=== PATIENT | female | born 1995 | race American Indian/Alaskan Native ===

== ENCOUNTER 2017-02-16 22:10 | Emergency (ER) | payer OTHER ==
[2017-02-16 23:25] LABS: Basophils % (Auto) 0.3 % (0.0-1.8); Eosinophils % (Auto) 0.5 % (0.0-4.3); Hematocrit 38.2 % (30.3-42.9); Hemoglobin 12.3 gm/dl (10.1-14.3); Mean Corpuscular HGB Conc 32 % (30-34); Mean Corpuscular Volume 78 fl (79-97); Platelet Count 201 K/mm3 (140-440); Red Blood Count 4.88 M/mm3 (3.65-5.03); Red Cell Distribution Width 17.6 % (13.2-15.2); White Blood Count 4.2 K/mm3 (4.5-11.0)
[2017-02-16 23:30] LABS: Mean Corpuscular Hemoglobin 25 pg (28-32)
[2017-02-16 23:48] LABS: Anion Gap 16 mmol/L; Blood Urea Nitrogen 9 mg/dL (7-17); Carbon Dioxide 25 mmol/L (22-30); Glucose 107 mg/dL (65-100); Potassium 3.9 mmol/L (3.6-5.0); Sodium 137 mmol/L (137-145)
[2017-02-17] MEDS ORDERED: XANAX PO ONE (00:10)
--- NOTE | 2017-02-17 00:18 | Emergency Department Report ---
HPI - General Chief Complaint: Anxiety Time Seen by Provider: 02/17/17 00:03 - HPI HPI: This is a 21-year-old -[place] female presents to the emergency department from home with complaint of some generalized dizziness that started earlier today major feels that she is going to pass out. The patient wonders if she has anxiety and was having a panic attack. She has never been seen by a psychiatrist or diagnosed with anxiety or panic disorder but has had the same set of symptoms in the past. She otherwise denies having any past medical history. She did not take anything for symptoms prior to presentation. She denies any chest pain, shortness of breath, vision change, headache or any neurological deficits. No recent travel or sick contacts at home. She is an occasional tobacco smoker but denies any illicit drug use or abuse. ED Past Medical Hx - Past Medical History Previous Medical History?: No - Surgical History Past Surgical History?: No - Social History Smoking Status: Never Smoker Substance Use Type: None - Medications Home Medications: Home Medications Medication Instructions Recorded Confirmed Last Taken Type metroNIDAZOLE [Flagyl] 500 mg PO Q12HR #14 tab 08/26/16 Unknown Rx ED Review of Systems ROS: Stated complaint: ALFREDA, FAINTING Other details as noted in HPI Comment: All other systems reviewed and negative Constitutional: denies: chills, fever Eyes: denies: eye pain, eye discharge, vision change ENT: denies: ear pain, throat pain Respiratory: denies: cough, shortness of breath, wheezing Cardiovascular: denies: chest pain, palpitations Gastrointestinal: denies: abdominal pain, nausea, diarrhea Genitourinary: denies: urgency, dysuria, discharge Musculoskeletal: denies: back pain, joint swelling, arthralgia Skin: denies: rash, lesions Neurological: other (dizzy). denies: headache, weakness, numbness, paresthesias Psychiatric: anxiety. denies: auditory hallucinations, visual hallucinations Physical Exam - Physical Exam Vital Signs: Vital Signs 02/16/17 22:42 Temperature 98.6 F Pulse Rate 73 Respiratory 18 Rate Blood Pressure 120/68 Blood Pressure 120/68 [Right] O2 Sat by Pulse 100 Oximetry Physical Exam: GENERAL: The patient is well-developed well-nourished. HEENT: Normocephalic. Atraumatic. Extraocular motions are intact. Patient has moist mucous membranes. Pupils equal reactive to light bilaterally. NECK: Supple. Trachea is midline. CHEST/LUNGS: Clear to auscultation. There is no respiratory distress noted. HEART/CARDIOVASCULAR: Regular. There is no tachycardia. There is no gallop rub or murmur. ABDOMEN: Abdomen is soft, nontender. Patient has normal bowel sounds. There is no abdominal distention. SKIN: Skin is warm and dry. NEURO: The patient is awake, alert, and oriented. The patient is cooperative. The patient has no focal neurologic deficits. The patient has normal speech. Cranial nerves II through XII grossly intact. MUSCULOSKELETAL: There is no tenderness or deformity. There is no limitation range of motion. There is no evidence of acute injury. PSYCH: Patient has a flat affect ED Course Vital Signs 02/16/17 22:42 Temperature 98.6 F Pulse Rate 73 Respiratory 18 Rate Blood Pressure 120/68 Blood Pressure 120/68 [Right] O2 Sat by Pulse 100 Oximetry ED Medical Decision Making - Lab Data Result diagrams: 02/16/17 23:08 02/16/17 23:08 - EKG Data -: EKG Interpreted by Fl EKG shows normal: sinus rhythm (with PACs), axis, intervals, QRS complexes, ST- T waves Rate: normal - EKG Data When compared to previous EKG there are: previous EKG unavailable Interpretation: normal EKG - Medical Decision Making 21-year-old female presents with complaint of possible anxiety and/or panic attack. It causes her to feel dizzy as if she is going to pass out. Labs are unremarkable including no leukocytosis, electrolyte abnormalities, renal insufficiency, glucose abnormalities. Normal thyroid function. No urinary tract infection and the patient is not . Vital signs stable throughout her ED course. EKG is normal without ST elevation [place], ischemia or dysrhythmia. She was given a dose of Xanax to see if that will help her with her symptoms. Prior to being able to check on the efficacy of that medication, the patient eloped from the emergency department. - Differential Diagnosis anxiety, depression, panic attack, hyperthyroidism, dysrhythmia Critical Care Time: No Critical care attestation.: If time is entered above; I have spent that time in minutes in the direct care of this critically ill patient, excluding procedure time. ED Disposition Clinical Impression: Anxiety, Dizziness Disposition: ELOPED Is pt being admited?: No Condition: Stable Referrals: PRIMARY CARE, [Primary Care Provider] - 3-5 Days Time of Disposition: 03:09
[2017-02-17 00:26] VITALS: BP 108/76
[2017-02-17 01:47] LABS: Bacteria,Urine 1+ /HPF (Negative); Bilirubin,Urine NEG (Negative); Blood,Urine NEG (Negative); Ketones,Urine TR mg/dL (Negative); Leukocyte Esterase,Urine NEG (Negative); Mucus,Urine FEW /HPF; Nitrite,Urine NEG (Negative); Protein,Urine <15 mg/dL mg/dL (Negative)
== END 2017-02-17 01:46 | disposition left against medical advice (07) ==
LOC: ED 22:10
DX: F41.9 Anxiety disorder, unspecified (principal); R42 Dizziness and giddiness
CPT/HCPCS: 36415; 80048; 81001; 81025; 84443; 84484; 85025; 93005; 93010